=== PATIENT | male | born 2000 | race Caucasian/White ===

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

== ENCOUNTER 2020-06-26 14:12 | Emergency (ER) | payer OTHER ==
[~2020-06-26] VITALS: Ht 182.8 cm; Wt 107.0 kg
[~2020-06-26 14:12] MED LIST changes: +FLONASE ALLERG9.9 ML NAS
[2020-06-26 14:36] VITALS: BP 126/72
[2020-06-26] MEDS ORDERED: NAPROSYN500 MG PO (15:19)
[2020-06-26] MEDS ORDERED: METHOCARBAMOL500 M1 PO (15:19)
== END 2020-06-26 15:37 | disposition home or self-care (01) ==
LOC: ED 14:12
DX: S39.011A Strain of muscle, fascia and tendon of abdomen, initial encounter (principal); F17.200 Nicotine dependence, unspecified, uncomplicated; Z79.899 Other long term (current) drug therapy; V47.5XXA Car driver injured in collision with fixed or stationary object in traffic accident, initial encounter; Y93.89 Activity, other specified; Y92.481 Parking lot as the place of occurrence of the external cause; Y99.8 Other external cause status

== ENCOUNTER → 2020-10-27 | Outpatient (CLI) | payer OTHER ==
[~2020-10-27] MED LIST changes: +METHOCARBAMOL500 M1 PO
== END | disposition home or self-care (01) ==
LOC: COVID19 15:29
PROVIDERS: ATTEND Internal Medicine
DX: Z20.828 Contact with and (suspected) exposure to other viral communicable diseases (principal)

== ENCOUNTER 2020-12-07 12:09 | Emergency (ER) | payer OTHER ==
[~2020-12-07] VITALS: Wt 112.5 kg
[2020-12-07 12:21] VITALS: BP 143/78
[2020-12-07] MEDS ORDERED: PROVENTIL HFA6.7 GM INH (13:18)
[2020-12-07] MEDS ORDERED: ROBITUSSIN DM 101 OZ PO (13:18)
== END 2020-12-07 13:30 | disposition home or self-care (01) ==
LOC: ED 12:09
DX: J02.9 Acute pharyngitis, unspecified (principal); R05 Cough; Z79.899 Other long term (current) drug therapy; Z20.828 Contact with and (suspected) exposure to other viral communicable diseases

== ENCOUNTER 2021-04-20 23:07 | Emergency (ER) | payer OTHER ==
[~2021-04-20] VITALS: Ht 182.8 cm; Wt 112.5 kg
[~2021-04-20 23:07] MED LIST changes: +PROVENTIL HFA6.7 GM INH
[2021-04-20 23:39] VITALS: BP 139/66
[2021-04-21] MEDS ORDERED: PROVENTIL HFA6.7 GM INH (01:10)
== END 2021-04-21 01:19 | disposition home or self-care (01) ==
LOC: ED 23:07
DX: J40 Bronchitis, not specified as acute or chronic (principal); Z20.822 Contact with and (suspected) exposure to COVID-19; F17.200 Nicotine dependence, unspecified, uncomplicated; Z79.899 Other long term (current) drug therapy

== ENCOUNTER 2021-05-03 20:44 | Emergency (ER) | payer OTHER ==
[2021-05-03 20:58] VITALS: BP 137/77
[2021-05-03] MEDS ORDERED: DOXYCYCLINE100 M3 PO (21:00)
== END 2021-05-03 21:17 | disposition home or self-care (01) ==
LOC: ED 20:44
DX: A69.20 Lyme disease, unspecified (principal); Z79.899 Other long term (current) drug therapy

== ENCOUNTER 2022-02-15 20:38 | Emergency (ER) | payer OTHER ==
[~2022-02-15] VITALS: Ht 182.8 cm; Wt 108.9 kg
[~2022-02-15 20:38] MED LIST changes: +DOXYCYCLINE100 M3 PO
[2022-02-15 20:43] VITALS: BP 143/77
[2022-02-15 21:20] LABS: BILIRUBIN Negative (Negative); BLOOD Negative (Negative); CLARITY Clear (Clear); COLOR Yellow (Yellow); GLUCOSE Negative (Negative); KETONE Negative (Negative); LEUKO ESTERASE Negative (Negative); NITRITE Negative (Negative)
[2022-02-15 21:34] LABS: BACTERIA 1+
== END 2022-02-15 21:52 | disposition home or self-care (01) ==
LOC: ED 20:38
PROVIDERS: Physician Assistant
DX: S39.011A Strain of muscle, fascia and tendon of abdomen, initial encounter (principal); Z79.899 Other long term (current) drug therapy; Z90.89 Acquired absence of other organs; X50.0XXA Overexertion from strenuous movement or load, initial encounter; Y93.89 Activity, other specified; Y92.89 Other specified places as the place of occurrence of the external cause; Y99.8 Other external cause status

== ENCOUNTER 2022-05-26 21:32 | Emergency (ER) | payer OTHER ==
[~2022-05-26] VITALS: Ht 180.3 cm
[2022-05-26 21:39] VITALS: BP 138/84
[2022-05-26] MEDS ORDERED: PENICILLIN-VK500 M1 PO (22:05)
== END 2022-05-26 22:08 | disposition home or self-care (01) ==
LOC: ED 21:32
DX: J02.9 Acute pharyngitis, unspecified (principal); Z79.899 Other long term (current) drug therapy

== ENCOUNTER 2022-06-20 15:11 | Emergency (ER) | payer OTHER ==
[~2022-06-20] VITALS: Ht 177.8 cm; Wt 104.3 kg
[~2022-06-20 15:11] MED LIST changes: +PENICILLIN-VK500 M1 PO
[2022-06-20 15:27] VITALS: BP 139/86
== END 2022-06-20 16:55 | disposition home or self-care (01) ==
LOC: ED 15:11
DX: S05.02XA Injury of conjunctiva and corneal abrasion without foreign body, left eye, initial encounter (principal); Z79.899 Other long term (current) drug therapy; X58.XXXA Exposure to other specified factors, initial encounter; Y93.89 Activity, other specified; Y92.89 Other specified places as the place of occurrence of the external cause; Y99.9 Unspecified external cause status

== ENCOUNTER 2022-07-01 18:42 | Emergency (ER) | payer OTHER ==
[~2022-07-01] VITALS: Wt 107.0 kg
[2022-07-01 18:52] VITALS: BP 130/75
[2022-07-01] MEDS ORDERED: CYCLOBENZAPRINE10 MG PO (19:49)
[2022-07-01] MEDS ORDERED: IBU800 M2 PO (19:49)
== END 2022-07-01 20:41 ==
LOC: ED 18:42
DX: M54.50 Low back pain, unspecified (principal); Z79.899 Other long term (current) drug therapy; Z90.89 Acquired absence of other organs

== ENCOUNTER → 2022-07-08 | Outpatient (CLI) | payer OTHER ==
[~2022-07-08] MED LIST changes: +IBU800 M2 PO
== END | disposition home or self-care (01) ==
LOC: RAD 10:38
PROVIDERS: ATTEND Family Medicine
DX: M48.061 Spinal stenosis, lumbar region without neurogenic claudication (principal)

== ENCOUNTER 2022-07-19 17:04 | Emergency (ER) | payer OTHER ==
[~2022-07-19] VITALS: Ht 180.3 cm; Wt 108.9 kg
[2022-07-19 17:08] VITALS: BP 130/73
[2022-07-19] MEDS ORDERED: PREDNISONE50 MG PO (20:39)
== END 2022-07-19 20:53 | disposition home or self-care (01) ==
LOC: ED 17:04
DX: B34.9 Viral infection, unspecified (principal); Z20.822 Contact with and (suspected) exposure to COVID-19; Z79.899 Other long term (current) drug therapy

== ENCOUNTER 2022-10-04 16:53 | Emergency (ER) | payer OTHER ==
[~2022-10-04] VITALS: Ht 180.3 cm; Wt 112.5 kg
[~2022-10-04 16:53] MED LIST changes: +PREDNISONE50 MG PO
[2022-10-04 17:17] VITALS: BP 121/70
== END 2022-10-04 18:44 | disposition home or self-care (01) ==
LOC: ED 16:53
DX: R11.10 Vomiting, unspecified (principal); Z79.899 Other long term (current) drug therapy; Z90.89 Acquired absence of other organs

== ENCOUNTER 2022-10-14 15:04 | Emergency (ER) | payer OTHER ==
[~2022-10-14] VITALS: Wt 112.5 kg
[2022-10-14 15:10] VITALS: BP 140/74
[2022-10-14 15:56] LABS: BASO # 0.1 10*3/uL (0.0-0.1); BASO % 0.5 % (0.0-1.0); EOS # 0.3 10*3/uL (0.0-0.4); EOS % 2.9 % (1.0-4.0); HEMATOCRIT 45.1 % (42.0-52.0); LYMPH # 2.9 10*3/uL (1.3-4.4); LYMPH % 28.8 % (27.0-41.0); MEAN CELL VOLUME 86.4 fl (80.0-94.0); MEAN CORPUSCULAR HGB 29.9 pg (27.0-31.0); MEAN CORPUSCULAR HGB CONC 34.6 g/dl (33.0-37.0); MEAN PLATELET VOLUME 10.8 fl (9.6-12.3); MONO # 0.6 10*3/uL (0.1-1.0); NEUT # 6.2 10*3/uL (2.3-7.9); NEUT % 61.3 % (47.0-73.0); PLATELET COUNT AUTOMATED 189 10*3/uL (130-400); RED BLOOD COUNT 5.22 10*6/uL (4.50-5.90); RED CELL DISTRI WIDTH 12.5 % (0-14.5)
[2022-10-14 16:28] LABS: ALKALINE PHOSPHATASE 78 U/L (46-116); BUN 15 mg/dl (9-23); CHLORIDE 105 mmol/L (98-107); CREATININE 1.03 mg/dL (0.70-1.30); LIPASE 40 U/L (12-53); POTASSIUM 3.9 mmol/L (3.4-5.1); SGPT/ALT 45 U/L (10-49); SODIUM 139 mmol/L (136-145); TOTAL PROTEIN 6.6 gm/dL (6.0-8.0)
[2022-10-14] MEDS ORDERED: ONDANSETRON4 MG SL (17:13)
== END 2022-10-14 17:45 | disposition home or self-care (01) ==
LOC: ED 15:04
PROVIDERS: Physician Assistant
DX: R11.2 Nausea with vomiting, unspecified (principal); R10.9 Unspecified abdominal pain; Z79.899 Other long term (current) drug therapy; Z90.89 Acquired absence of other organs

== ENCOUNTER 2023-07-19 02:21 | Emergency (ER) | payer OTHER ==
[~2023-07-19] VITALS: Ht 180.3 cm; Wt 108.9 kg
[~2023-07-19 02:21] MED LIST changes: +ONDANSETRON4 MG SL
[2023-07-19 02:35] VITALS: BP 147/88
== END 2023-07-19 02:37 | disposition home or self-care (01) ==
LOC: ED 02:21
DX: T63.481A Toxic effect of venom of other arthropod, accidental (unintentional), initial encounter (principal); F90.9 Attention-deficit hyperactivity disorder, unspecified type; Z98.890 Other specified postprocedural states; Y93.89 Activity, other specified; Y92.009 Unspecified place in unspecified non-institutional (private) residence as the place of occurrence of the external cause; Y99.8 Other external cause status

== ENCOUNTER 2024-01-20 07:15 | Emergency (ER) | payer OTHER ==
[~2024-01-20] VITALS: Ht 180.3 cm; Wt 104.3 kg
[2024-01-20 07:25] VITALS: BP 123/87
[2024-01-20] MEDS ORDERED: AVPAK AZITHROM250 M1 PO (09:00)
== END 2024-01-20 09:03 | disposition home or self-care (01) ==
LOC: ED 07:15
DX: J40 Bronchitis, not specified as acute or chronic (principal); F90.9 Attention-deficit hyperactivity disorder, unspecified type; Z98.890 Other specified postprocedural states; Z20.822 Contact with and (suspected) exposure to COVID-19; F17.210 Nicotine dependence, cigarettes, uncomplicated

== ENCOUNTER 2024-01-22 17:52 | Emergency (ER) | payer OTHER ==
[~2024-01-22] VITALS: Ht 180.3 cm; Wt 102.1 kg
[~2024-01-22 17:52] MED LIST changes: +AVPAK AZITHROM250 M1 PO
[2024-01-22 18:03] VITALS: BP 144/95
[2024-01-22] MEDS ORDERED: ONDANSETRON4 MG SL (18:19)
[2024-01-22] MEDS ORDERED: MEDROL DOSEPAK4 MG PO (18:19)
== END 2024-01-22 19:16 | disposition home or self-care (01) ==
LOC: ED 17:52
DX: J06.9 Acute upper respiratory infection, unspecified (principal); R42 Dizziness and giddiness; R05.9 Cough, unspecified; R09.81 Nasal congestion; Z79.2 Long term (current) use of antibiotics

== ENCOUNTER 2024-10-31 17:44 | Emergency (ER) | payer OTHER ==
[~2024-10-31] VITALS: Ht 180.3 cm; Wt 104.3 kg
[2024-10-31 19:06] VITALS: BP 131/84
[2024-10-31] MEDS ORDERED: IBUPROFEN 800 MG TAB PO ONE (21:20)
[2024-10-31] MEDS ORDERED: MELOXICAM15 MG PO (22:45)
== END 2024-10-31 22:50 | disposition home or self-care (01) ==
LOC: ED 17:44
DX: R51.9 Headache, unspecified (principal); M54.2 Cervicalgia; M54.50 Low back pain, unspecified; R10.84 Generalized abdominal pain; V89.2XXA Person injured in unspecified motor-vehicle accident, traffic, initial encounter; Y93.I9 Activity, other involving external motion; Y92.488 Other paved roadways as the place of occurrence of the external cause; Y99.8 Other external cause status

== ENCOUNTER → 2024-11-09 | Outpatient (CLI) | payer SELFPAY ==
[~2024-11-09] MED LIST changes: +MELOXICAM15 MG PO
== END | disposition home or self-care (01) ==
LOC: RAD 11:26
PROVIDERS: ATTEND Family Medicine
DX: M48.07 Spinal stenosis, lumbosacral region (principal); M54.50 Low back pain, unspecified

== ENCOUNTER 2025-08-18 09:23 | Emergency (ER) | payer BC ==
[~2025-08-18] VITALS: Ht 180.3 cm; Wt 97.5 kg
[2025-08-18 09:46] VITALS: BP 132/66
[2025-08-18] MEDS ORDERED: CEPHALEXIN500 M1 PO (10:32)
== END 2025-08-18 14:44 | disposition home or self-care (01) ==
LOC: ED 09:23
DX: S91.311A Laceration without foreign body, right foot, initial encounter (principal); W20.8XXA Other cause of strike by thrown, projected or falling object, initial encounter; Y93.89 Activity, other specified; Y92.89 Other specified places as the place of occurrence of the external cause; Y99.8 Other external cause status

== ENCOUNTER 2025-08-25 08:31 | Emergency (ER) | payer BC ==
[~2025-08-25] VITALS: Ht 180.3 cm; Wt 97.5 kg
[~2025-08-25 08:31] MED LIST changes: +CEPHALEXIN500 M1 PO
[2025-08-25 08:43] VITALS: BP 134/67
== END 2025-08-25 08:54 | disposition home or self-care (01) ==
LOC: ED 08:31
DX: S91.311D Laceration without foreign body, right foot, subsequent encounter (principal); F90.9 Attention-deficit hyperactivity disorder, unspecified type; X58.XXXD Exposure to other specified factors, subsequent encounter